=== PATIENT | female | born 2000 | race American Indian/Alaskan Native ===

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

== ENCOUNTER 2020-09-23 14:59 | Emergency (ER) | payer OTHER ==
[2020-09-23 16:06] VITALS: BP 121/69
--- NOTE | 2020-09-23 19:46 | Emergency Department Report ---
ED Eye Problem HPI - General Chief complaint: Eye Problems Stated complaint: PINK EYE Time Seen by Provider: 09/23/20 19:40 Source: patient Mode of arrival: Ambulatory Limitations: No Limitations - History of Present Illness Initial comments: Patient is a 20-year-old female presents emergency room complaints of bilateral eye irritation that began a couple days ago. She states that she believes she has pinkeye. States that her boyfriend has pinkeye and she has been using his medication and it has been improving. States that she has been having crusting, mucus drainage, eyelash matting. She denies any vision changes or anything getting into the eye. No past medical history. Allergy to penicillin. - Related Data Previous Rx's Medication Instructions Recorded Last Taken Type 21/Iron Fu/Folic Acid 1 each PO DAILY #30 tablet 10/09/18 Unknown Rx [ Complete Caplet] Nitrofurantoin [place]/M-Cryst 100 mg PO Q12HR #10 capsule 11/13/18 Unknown Rx [Macrobid CAP] Erythromycin [Erythromycin Ophth 1 applicatio OU QID 7 Days #1 tube 09/23/20 Unknown Rx Oint] Allergies Allergy/AdvReac Type Severity Reaction Status Date / Time Penicillins Allergy Unknown Verified 10/09/18 14:53 ED Review of Systems ROS: Stated complaint: PINK EYE Other details as noted in HPI Comment: All other systems reviewed and negative ED Past Medical Hx - Past Medical History Previous Medical History?: No - Surgical History Past Surgical History?: No - Social History Smoking Status: Never Smoker Substance Use Type: None - Medications Home Medications: Home Medications Medication Instructions Recorded Confirmed Last Taken Type 21/Iron Fu/Folic Acid 1 each PO DAILY #30 tablet 10/09/18 Unknown Rx [ Complete Caplet] Nitrofurantoin [place]/M-Cryst 100 mg PO Q12HR #10 capsule 11/13/18 Unknown Rx [Macrobid CAP] Erythromycin [Erythromycin Ophth 1 applicatio OU QID 7 Days #1 tube 09/23/20 Unknown Rx Oint] ED Physical Exam - General Limitations: No Limitations General appearance: alert, in no apparent distress - Head Head exam: Present: atraumatic, normocephalic - Eye Eye exam: Present: PERRL, EOMI, conjunctival injection (mild with bilateral mucus crusting). Absent: periorbital swelling, periorbital tenderness - ENT ENT exam: Present: mucous membranes moist - Respiratory Respiratory exam: Absent: respiratory distress, accessory muscle use - Neurological Exam Neurological exam: Present: alert, oriented X3 - Psychiatric Psychiatric exam: Present: normal affect, normal mood - Skin Skin exam: Present: warm, dry, intact ED Course Vital Signs 09/23/20 16:01 Temperature 98.5 F Pulse Rate 94 H Respiratory 16 Rate Blood Pressure 121/69 O2 Sat by Pulse 97 Oximetry ED Medical Decision Making - Medical Decision Making Patient is a 20-year-old female presents emergency room complaints of bilateral eye irritation that began a couple days ago. She states that she believes she has pinkeye. States that her boyfriend has pinkeye and she has been using his medication and it has been improving. States that she has been having crusting, mucus drainage, eyelash matting. She denies any vision changes or anything getting into the eye. No past medical history. Allergy to penicillin. Vitals are normal. On exam: Very mild faint conjunctival injection bilaterally with small amount of mucus drainage, EOMI, PERRLA, no periorbital edema or tenderness. Semination consistent with mild conjunctivitis which appears to be improving. Given prescription for erythromycin ophthalmic ointment. Advised patient Please use medication as prescribed. Wash your hands frequently. Avoid rubbing the eyes. Wash your pillowcases and bed sheets. Follow-up with your primary care doctor. Return to emergency room for any new or worsening symptoms. Critical care attestation.: If time is entered above; I have spent that time in minutes in the direct care of this critically ill patient, excluding procedure time. ED Disposition Clinical Impression: Conjunctivitis Qualifiers: Conjunctivitis type: acute Acute conjunctivitis type: unspecified Laterality: bilateral Qualified Code(s): H10.33 - Unspecified acute conjunctivitis, bilateral Disposition: - TO HOME OR SELFCARE Is pt being admited?: No Does the pt Need Aspirin: No Condition: Stable Instructions: Bacterial Conjunctivitis, Adult, How to Use Eye Drops and Eye Ointments Additional Instructions: Please use medication as prescribed. Wash your hands frequently. Avoid rubbing the eyes. Wash your pillowcases and bed sheets. Follow-up with your primary [facility] doctor. Return to emergency room for any new or worsening symptoms. Prescriptions: Erythromycin [Erythromycin Ophth Oint] 1 applicatio OU QID 7 Days #1 tube Referrals: PRIMARY CARE, [Primary Care Provider] - 2-3 Days Time of Disposition: 19:46 Print Language: CHINESE
== END 2020-09-23 19:46 | disposition home or self-care (01) ==
LOC: ED 14:59
DX: H10.9 Unspecified conjunctivitis (principal)
CPT/HCPCS: 99281

== ENCOUNTER 2021-09-24 00:05 | Outpatient (CLI) | payer OTHER ==
[2021-09-24 02:10] LABS: Bacteria,Urine 1+ /HPF (Negative); Mucus,Urine FEW /HPF
[2021-09-24 02:21] LABS: Bilirubin,Urine Negative (Negative); Blood,Urine Moderate (Negative); Color,Urine Yellow (Yellow); PH,Urine 7.5 (5.0-7.0); Protein,Urine <30 mg dL mg/dL (Negative); Urobilinogen,Urine < 2.0 mg/dL (<2.0)
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
[2021-09-24 04:52] VITALS: BP 97/54
== END 2021-09-24 04:57 | disposition home or self-care (01) ==
LOC: TRG 00:05 → LD 00:33 → TRG 04:57
PROVIDERS: ATTEND Obstetrics & Gynecology
DX: Z34.93 Encounter for supervision of normal pregnancy, unspecified, third trimester (principal); Z3A.35 35 weeks gestation of pregnancy
CPT/HCPCS: 76815; 76819; 81001